=== PATIENT | female | born 1995 | race African-American/Black ===

== ENCOUNTER 2024-09-26 10:44 | Emergency (ER) | payer MEDICAID ==
[~2024-09-26] VITALS: Ht 162.6 cm; Wt 68.0 kg
[2024-09-26 10:52] VITALS: O2SAT 98
[2024-09-26] MEDS: ACETAMINOPHEN 325MG TABLET PO ONE (12:16)
[2024-09-26] MEDS ORDERED: ONDA4TAB50 MT (13:10)
[2024-09-26] MEDS ORDERED: TOPUD MT (13:10)
[2024-09-26] MEDS ORDERED: TUSSL MT (13:10)
[2024-09-26] MEDS ORDERED: IBUP-2028 MT (13:10)
[2024-09-26 13:57] VITALS: BP 117/84; PULSE 98; RESP 16; TEMP 36.78072; O2SAT 98
== END 2024-09-26 13:58 | disposition home or self-care (01) ==
LOC: ER 10:44
DX: B34.9 Viral infection, unspecified (principal)
CPT/HCPCS: 71045; 99283